=== PATIENT | female | born 1995 ===

== ENCOUNTER 2018-04-28 16:25 | Emergency (ER) | payer OTHER ==
[2018-04-28 16:33] VITALS: RESP 20
[2018-04-28 16:52] VITALS: TEMP 98
[2018-04-28 17:34] LABS: HCG,QUALITATIVE URINE NEGATIVE (NEGATIVE)
[2018-04-28 17:44] LABS: SQUAMOUS EPITHIAL 1 /hpf (0-5); URINE BACTERIA RARE (<OCC); URINE BILIRUBIN NEGATIVE (NEGATIVE); URINE BLOOD 3+ (NEGATIVE); URINE COLOR Yellow (YELLOW); URINE GLUCOSE (UA) NORMAL (Normal); URINE LEUKOCYTE ESTERASE NEG Leu/uL (Negative); URINE PROTEIN NEGATIVE (NEGATIVE)
[2018-04-28 17:49] LABS: URINE CLARITY HAZY (Clear)
--- NOTE | 2018-04-28 17:50 | C.PDOC ---
History Of Present Illness 23 year old female presents to the ED for evaluation of persistent vaginal bleeding for 10 days. Patient states she has been using around 10 pads/day. Patient received a depo injection 10 weeks ago. Her LMP was two months ago. Patient denies abdominal pain, nausea, vomiting, diarrhea. Time Seen by Provider: 04/28/18 16:42 Chief Complaint (Nursing): Female Genitourinary History Per: Patient History/Exam Limitations: no limitations Onset/Duration Of Symptoms: Days (10), Persistent Current Symptoms Are (Timing): Still Present Quality Of Discomfort: denies: "Pain" Associated Symptoms: denies: Nausea, Vomiting, Diarrhea Additional History Per: Patient Abnormal Vaginal Bleeding: Yes Last Menstral Period: two months ago Past Medical History Reviewed: Historical Data, Nursing Documentation, Vital Signs Vital Signs: Last Vital Signs Temp 98 F 04/28/18 16:50 Pulse 69 04/28/18 16:50 Resp 20 04/28/18 16:50 BP 105/69 04/28/18 16:50 Pulse Ox 99 04/28/18 16:50 - Medical History PMH: No Chronic Diseases Surgical History: No Surg Hx Family History: States: Unknown Family Hx - Social History Hx Alcohol Use: No Hx Substance Use: No - Immunization History Hx Tetanus Toxoid Vaccination: No Hx Influenza Vaccination: No Hx Pneumococcal Vaccination: No Review Of Systems Gastrointestinal: Negative for: Nausea, Vomiting, Abdominal Pain, Diarrhea Genitourinary: Positive for: Vaginal Bleeding Physical Exam - Physical Exam Appears: Non-toxic, No Acute Distress Skin: Normal Color, Warm, Dry Head: Atraumatic, Normacephalic Eye(s): bilateral: Normal Inspection, Other (normal conjunctiva ) Oral Mucosa: Moist Neck: Supple Chest: Symmetrical, No Deformity, No Tenderness Cardiovascular: Rhythm Regular, No Murmur Respiratory: Normal Breath Sounds, No Rales, No Rhonchi, No Wheezing Gastrointestinal/Abdominal: Soft, No Tenderness, No Guarding, No Rebound Extremity: Normal ROM, Capillary Refill (less than 2 seconds ) Neurological/Psych: Oriented x3, Normal Speech, Normal Cognition ED Course And Treatment - Laboratory Results Lab Results: Urine HCG, Qual Negative (NEGATIVE) 04/28/18 17:07 Urine HCG, Qual Negative (NEGATIVE) 04/28/18 17:07 Urine POC: Negative O2 Sat by Pulse Oximetry: 99 (on RA ) Pulse Ox Interpretation: Normal Progress Note: urinalysis ordered and reviewed. Medical Decision Making Medical Decision Making: DUB after Depot Provera d/w arjun Cesar to start El and continue same. opt f/u with [facility]. Disposition Doctor Will See Patient In The: Office Counseled Patient/Family Regarding: Studies Performed, Diagnosis - Disposition Referrals: Replaced By [facility] [Outside] [facility] [Outside] [facility] [Outside] [facility] [Outside] Disposition: HOME/ ROUTINE Disposition Time: 17:49 Condition: GOOD Additional Instructions: test NEGATIVE Start and Continue EL BCP's today First dose now outpatient followup in our [facility] or [facility]. Prescriptions: Norethindrone-Ethinyl Estrad [Alyacen 1-35-28 Tablet] 1 each PO DIAL PRN #1 tablet PRN Reason: control Instructions: Absent or Irregular Periods Forms: [facility] (Welsh) - Clinical Impression Clinical Impression: DUB (dysfunctional uterine bleeding) - Scribe Statement The provider has reviewed the documentation as recorded by the Scribe (Sofie Barraza) Provider Attestation: All medical record entries made by the Scribe were at my direction and personally dictated by me. I have reviewed the chart and agree that the record accurately reflects my personal performance of the history, physical exam, medical decision making, and the department course for this patient. I have also personally directed, reviewed, and agree with the discharge instructions and disposition.
[2018-04-28 18:03] VITALS: BP 102/64; PULSE 76
[2018-04-28 18:53] VITALS: O2SAT 99
== END 2018-04-28 18:02 | disposition home or self-care (01) ==
LOC: C.ER 16:25
DX: N93.8 Other specified abnormal uterine and vaginal bleeding (principal)